=== PATIENT | male | born 1995 | race Caucasian/White ===

== ENCOUNTER 2020-04-05 11:28 | Emergency (ER) | payer OTHER, SELFPAY ==
--- NOTE | ~2020-04-05 | XR_ITS ---
EXAMINATION: XR chest 2V DATE: 04/05/2020 11:56 INDICATION: Left upper chest pain TECHNIQUE: PA and lateral views of the chest were obtained. COMPARISON: None FINDINGS: The lungs are clear with no focal airspace opacities, pulmonary edema, pleural effusion or pneumothor ax. The cardiomediastinal silhouette is normal. Visualized bones and soft tissues are unremarkable. IMPRESSION: 1. Normal chest radiograph. Reviewed, dictated and finalized at location A. IMPRESSION: 1. Normal chest radiograph.
[2020-04-05 11:36] VITALS: BP 156/80; PULSE 78; RESP 12; TEMP 36.5; O2SAT 100
--- NOTE | 2020-04-05 11:41 | ECG_ITS ---
Measurements Intervals [place] Rate: 77 P: 17 MO: 112 QRS: 70 QRSD: 105 T: 22 QT: 345 QTc: 391 Interpretive Statements SINUS RHYTHM WITH SHORT MO INTERVAL MINIMAL Q WAVES- INFERIOR LEADS BASELINE ARTIFACT- II, III, AVF BORDERLINE ECG Electronically Signed On 04-05-2020 17:34:47 CDT by Steve Bryant D.O.
--- NOTE | 2020-04-05 14:52 | ED.CHESTPAIN ---
HPI - Chest Pain General Chief Complaint: Chest Pain Stated Complaint: CHEST PAIN/L SHOULDER PAIN Source: patient and RN notes reviewed Limitations: no limitations History of Present Illness HPI narrative: The patient, a non-smoker/nondrinker, presents with left chest discomfort. Patient states he has no DM, HLD, AODM, nor cardiac FMH. He complains of 1 week worsening of several month history of intermittent left chest discomfort that is described as sharp and squeezing and lasts up to 10 minutes. 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 No reflux, fever, cough, loss of taste/smell, S OB, calf edema/ pain, sneezing/wheezing, precordial CP and pain seems to occasionly radiate from infraclavicular area to anterior left shoulder. He has a prior history of seasonal RAD and requests refill of inhalers. Patient advised to go to PMD, ED or cardiology if pain >15-20min or not improved. Screening EKG and chest x-ray are noncontributory Related Data Home Medications Medication Instructions Recorded Confirmed fluticasone propionate [Flonase] 1 spray INTRANASAL DAILY 04/05/20 04/05/20 Allergies Allergy/AdvReac Type Severity Reaction Status Date / Time No Known Allergies Allergy Verified 04/05/20 11:45 Review of Systems Review of Systems: Narrative: The patient has been informed that they may have pre-hypertension or Hypertension based on a BP reading in the department. I recommend that the patient call the primary care provider listed on their discharge instructions or a physician of their choice this week to arrange follow up for further evaluation of possible pre-hypertension or Hypertension General/Constitutional: No weight loss,fever Eyes: N0: Redness,discharge Ears/Nose/Throat: No: Epistaxis,ear discharge Respiratory: Denies: Hemoptysis Gastrointestinal: No Vomiting, Bleeding-rectal Skin: No Lumps, eruption Neurologic: No Focal Weakness,Sz Hematologic: Denies: Petechiae/Purpura Psychiatric: No: Suicida ideationl All Other Systems: Reviewed and Negative [facility] Social History Social History Smoking status: Never smoker Comments At time of signature, agree with nursing past medical, surgical, social and family history. There is no relevant family history pertinent to the presenting complaint Exam Narrative: Exam Narrative: General Appearance: Well appearing, Conjunctiva clear Ears: External ear normal Nose: Normal nose Mouth/Throat: Normal appearing, Normal lips,Supple Respiratory: Airway patent, No respiratory distress Cardiovascular: RRR, non tender chest Musculoskeletal: Full strngth Skin: Warm, Dry Neurological: A&O x3, Normal affect Course Course Emergency Course: Films visualized, interpreted by radiologist, agree, normal see report EKG SR at 77 bpm, GA 0.112 short GA, normal axis ~60 , borderline/otherwise normal tracing Vital Signs Vital signs: Vital Signs Temperature 97.7 F 04/05/20 11:36 Pulse Rate 78 04/05/20 11:36 Respiratory Rate 12 04/05/20 11:36 Blood Pressure 156/80 H 04/05/20 11:36 Pulse Oximetry 100 04/05/20 11:36 Temperature 97.7 F 04/05/20 11:36 Pulse Rate 78 04/05/20 11:36 Respiratory Rate 12 04/05/20 11:36 Blood Pressure 156/80 H 04/05/20 11:36 Pulse Oximetry 100 04/05/20 11:36 Discharge Plan Discharge Clinical Impression: Atypical chest pain Patient Disposition: Home, Self-Care Condition: Stable Instructions: Chest Pain (ED) Additional Instructions: If pain persists, see cardiology or PMD in follow-up Prescriptions: New albuterol sulfate [Ventolin HFA] 90 mcg/actuation HFA aerosol inhaler 2 puff INHALATION QID PRN (Reason: shortness of breath or wheezing) Qty: 8.5 RF: 1 No Action fluticasone propionate [Flonase] 50 mcg/actuation [place],Suspension 1 spray INTRANASAL DAILY RF: 0 Follow-up
== END 2020-04-05 12:30 | disposition home or self-care (01) ==
PROVIDERS: Emergency Provider Emergency Medicine; PCP Family Medicine
DX: R07.89 Other chest pain (principal); J45.909 Unspecified asthma, uncomplicated
CPT/HCPCS: 71046; 93005; 99213; G0463